=== PATIENT | male | born 1995 | race Caucasian/White ===

== ENCOUNTER 2016-11-08 16:53 | Emergency (ER) | payer SELFPAY ==
--- NOTE | 2016-11-09 16:12 | ER ---
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 He fell from a ladder. He has an abrasion to his left arm and has a left ankle injury. PAST HISTORY: Negative. He says his tetanus is not up to date. He is taking aspirin, says that the pain is controlled at this point. ALLERGIES: PENICILLIN. SOCIAL HISTORY: He is a smoker 1/4 of a pack a day. PHYSICAL EXAMINATION: VITAL SIGNS: Heart rate is 103, respirations 16, temperature is 99.3 with O2 sats 96% on room air. GENERAL: He is mildly anxious. EXTREMITIES: He has tenderness in the medial aspect of his left ankle with soft tissue and swelling. NEURO: Intact. VASCULAR: No pathology. Tendons not tested due to fracture. Gait unable to bear weight. He received a sugar tong as splint for his left ankle. His x-ray did show an avulsion fracture of the left medial malleolus. CLINICAL IMPRESSION: Abrasion left forearm secondary to fall from a ladder and avulsion fractures of left medial malleolus. He was given instructions follow up and given Dr. Alcazar as a city call follow up and he has crutches and up to date on his tetanus immunization which was given in the ER. [employer] / Vance Prasad MD / satya JOB #: [id number] CC: Vance Prasad MD, Attending Physician
== END 2016-11-08 18:35 | disposition home or self-care (01) ==
LOC: ER 16:53
PROC: 2W3RX1Z Immobilization of Left Lower Leg using Splint (ICD-10-PCS; principal; 2016-11-08)
DX: S82.52XA Displaced fracture of medial malleolus of left tibia, initial encounter for closed fracture (principal); S50.812A Abrasion of left forearm, initial encounter; F17.210 Nicotine dependence, cigarettes, uncomplicated; Z88.0 Allergy status to penicillin; W11.XXXA Fall on and from ladder, initial encounter; Y92.69 Other specified industrial and construction area as the place of occurrence of the external cause; Y99.0 Civilian activity done for income or pay